=== PATIENT | male | born 1985 | race Hispanic/Latino ===

== ENCOUNTER 2017-07-17 09:58 | Emergency (ER) | payer OTHER ==
[~2017-07-17] VITALS: Ht 175.3 cm; Wt 76.2 kg
[2017-07-17] MEDS ORDERED: PREDNISONE PO STA (10:19)
[2017-07-17] MEDS ORDERED: BENADRYL PO STA (10:19)
[2017-07-17] MEDS ORDERED: PREDNISONE ONE (10:20)
[2017-07-17] MEDS ORDERED: BENADRYL PO ONE (10:21)
--- NOTE | 2017-07-17 10:27 | ER.PDOC ---
General Chief Complaint: Allergic Reaction Stated Complaint: BEE STING Time seen by MD: 10:20 Source: patient Exam Limitations: no limitations History of Present Illness Initial Comments Bee sting Timing/Duration: 1 hour Severity: mild Location: facial, neck Exposure: bee/wasp sting Allergies: Coded Allergies: No Known Allergies (Unverified , 07/17/17) Past Medical History Medical History: no pertinent history Social History Smoking: non-smoker Alcohol Use: occassionally Drug Use: none Constitutional: no symptoms reported Respiratory: no symptoms reported Cardiovascular: no symptoms reported Gastrointestinal: no symptoms reported Skin: see HPI All Other Systems: Reviewed and Negative Physical Exam General Appearance: alert, no distress Skin: skin rash (no) Location: face Character: erythematous (area on nose) Extremities: non-tender, nml ROM, no edema Neck: trachea midline, no swelling Respiratory: no resp. distress, breath sounds nml CVS: reg. rate & rhythm, heart sounds nml Abdomen: non-tender, no organomegaly NEURO/PSYCH: oriented x 3, CN's nml as tested, motor nml, sensation nml, mood/ affect nml Departure Time of Disposition: 10:26 Disposition: 01 HOME, SELF-CARE Impression: Primary Impression: Bee sting Qualified Codes: T63.444A - Toxic effect of venom of bees, undetermined, initial encounter Condition: Stable Referrals: PCP,UNKNOWN (PCP) PRIMARY CARE PROVIDER Additional Instructions: Benadryl Pepcid F/U with your PCP in 2-3 days BOB MARIE MD Jul 17, 2017 10:27
[2017-07-17 10:36] VITALS: BP 118/51
== END 2017-07-17 10:35 | disposition home or self-care (01) ==
LOC: ER 09:58
DX: T63.441A Toxic effect of venom of bees, accidental (unintentional), initial encounter (principal); Y92.89 Other specified places as the place of occurrence of the external cause
CPT/HCPCS: 99283; J7512; Q0163